=== PATIENT | male | born 1995 | race Caucasian/White ===

== ENCOUNTER 2017-05-13 17:37 | Emergency (ER) | payer SELFPAY ==
[~2017-05-13] VITALS: Ht 165.1 cm; Wt 61.2 kg
--- OUTSIDE RECORDS SUMMARY | 2017-05-13 17:43 | XMS REPORT ---
Author Author NEIL SAAB [facility] eClinicalWorks Address Unknown Phone Unavailable Care Team Providers Care Certified Control Systems Technician Name Role Phone NEIL SAAB CP Unavailable Allergies, Adverse Reactions, Alerts Substance Reaction Event Type N.K.D.A. Info Not Available Non Drug Allergy Problems Problem Type Condition Code Onset Dates Condition Status Assessment Eye irritation H57.8 Active Problem Depressive disorder, not elsewhere classified 311 Active Medications No Known Medications Procedures Procedure Coding System Code Date Office Visit, Est Pt., Level 3 CPT-4 96101 August 26, 2015 Vital Signs Date/Time: August 26, 2015 Temperature 98 F Weight 135 lbs Height 67 in BMI 21.14 Index Blood Pressure Diastolic 76 mmHg Blood Pressure Systolic 122 mmHg Cardiac Monitoring Heart Rate 68 bpm BMIPercentile 38.07 % Wt Percentile 26.1 % Results No Known Results Summary Purpose eClinicalWorks Submission
--- OUTSIDE RECORDS SUMMARY | 2017-05-13 17:43 | XMS REPORT ---
Author Author OSCAR LONG Organization eClinicalWorks Address Unknown Phone Unavailable Care Team Providers Care Advance Seal Delivery System Maintainer Name Role Phone OSCAR LONG CP Unavailable Allergies, Adverse Reactions, Alerts Substance Reaction Event Type N.K.D.A. Info Not Available Non Drug Allergy Problems Problem Type Condition Code Onset Dates Condition Status Assessment Seasonal allergic rhinitis due to pollen J30.1 Active Problem Depressive disorder, not elsewhere classified 311 Active Medications Medication Code System Code Instructions Start Date End Date Status Dosage Cetirizine HCl [facility] [address]-78 10 mg Orally Once a day Jan 05, 2016 1 tablet Fluticasone Propionate [facility] [address]-41 50 MCG/ACT Nasally Once a day Jan 05, 2016 1 spray in each nostril Procedures Procedure Coding System Code Date Office Visit, Est Pt., Level 3 CPT-4 77687 Jan 05, 2016 Vital Signs Date/Time: Jan 05, 2016 Cardiac Monitoring Heart Rate 70 bpm Weight 138.9 lbs Height 67 in Wt Percentile 29.73 % BMI 21.75 Index Blood Pressure Diastolic 70 mmHg Blood Pressure Systolic 118 mmHg BMIPercentile 43.3 % Results No Known Results Summary Purpose eClinicalWorks Submission
--- OUTSIDE RECORDS SUMMARY | 2017-05-13 17:43 | XMS REPORT ---
Author Author ERAN KING [facility] eClinicalWorks Address Unknown Phone Unavailable Care Team Providers Care Assisted Living Care Manager Name Role Phone ERAN KING CP Unavailable Allergies, Adverse Reactions, Alerts Substance Reaction Event Type N.K.D.A. Info Not Available Non Drug Allergy Problems Problem Type Condition ICD-9 Code Onset Dates Condition Status Assessment Sports physical V70.3 Active Assessment Exercise counseling V65.41 Active Problem Depressive disorder, not elsewhere classified 311 Active Assessment Dietary counseling V65.3 Active Medications No Known Medications Procedures Procedure Coding System Code Date AUDIOMETRY-SCREEN CPT-4 79555 Jan 06, 2015 VISUAL ACUITY SCREEN CPT-4 35453 Jan 06, 2015 Preventive Care Est Pt. Age 12-17 CPT-4 08718 Jan 06, 2015 Vital Signs Date/Time: Jan 06, 2015 BMIPercentile 44.13 % Temperature 98.3 F Wt Percentile 31.46 % Weight 135lbs 5oz lbs Height 67 in Hearing pass P / L Blood Pressure Diastolic 80 mmHg Blood Pressure Systolic 120 mmHg Cardiac Monitoring Heart Rate 70 bpm Ht Percentile 21.65 % BMI 21.19 Index Results No Known Results Summary Purpose eClinicalWorks Submission
--- OUTSIDE RECORDS SUMMARY | 2017-05-13 17:43 | XMS REPORT ---
Author Author NEIL SAAB [facility] eClinicalWorks Address Unknown Phone Unavailable Care Team Providers Care Group Cio Name Role Phone NEIL SAAB Unavailable Allergies No Known Allergies Problems Problem Type Condition Code Onset Dates Condition Status Assessment Encounter for immunization Z23 Active Problem Depressive disorder, not elsewhere classified 311 Active Medications No Known Medications Procedures Procedure Coding System Code Date SINGLE IMMUNIZATION ADMIN CPT-4 10367 Apr 01, 2015 MENINGOCOCCAL (MENVEO) CPT-4 41978 Apr 01, 2015 Results No Known Results Immunizations Vaccine Administration Date MENINGOCOCCAL (MENVEO) Apr 01, 2015 Summary Purpose eClinicalWorks Submission
--- OUTSIDE RECORDS SUMMARY | 2017-05-13 17:43 | XMS REPORT ---
Author Author KYLE KUMAR [facility] Address [address] [place] [address] Care Team Providers Care Box Tender Name Role Phone KLYE KUMAR Unavailable PROBLEMS Type Condition ICD9-CM Code GUY30-QP Code Onset Dates Condition Status SNOMED Code Problem Depressive disorder, not elsewhere classified 311 Active [id number] ALLERGIES Substance Reaction Event Type Date Status N.K.D.A. Unknown Non Drug Allergy May, Unknown SOCIAL HISTORY No smoking Hx information available PLAN OF CARE Activity Details Follow Up prn Reason: VITAL SIGNS Height 67 in 2016-05-20 Weight 142.2 lbs 2016-05-20 Temperature 98.5 degrees Fahrenheit 2016-05-20 Heart Rate 72 bpm 2016-05-20 Respiratory Rate 20 2016-05-20 Oximetry 98 % 2016-05-20 BMI 22.27 kg/m2 2016-05-20 Blood pressure systolic 118 mmHg 2016-05-20 Blood pressure diastolic 66 mmHg 2016-05-20 MEDICATIONS Medication Instructions Dosage Frequency Start Date End Date Duration Status Cetirizine HCl 10 mg Orally Once a day 1 tablet 24h Dec, Active Fluticasone Propionate 50 MCG/ACT Nasally Once a day 1 spray in each nostril 24h Dec, Active RESULTS No Results PROCEDURES Procedure Date Ordered Related Diagnosis Body Site MEASURE BLOOD OXYGEN LEVEL May 20, 2016 Office Visit, Est Pt., Level 2 May 20, 2016 IMMUNIZATIONS No Known Immunizations
--- OUTSIDE RECORDS SUMMARY | 2017-05-13 17:44 | XMS REPORT | Continuity of Care Document ---
Author Author [facility] Address Unknown Phone Unavailable Allergies Active Description Code Type Severity Reaction Onset Reported/Identified Relationship to Patient Clinical Status Yes No Known Drug Allergies [id number] Drug Allergy Unknown N/A 05/08/2014 Medications There is no data. Problems Date Dx Coded Attending Type Code Diagnosis Diagnosed By 04/22/2011 DEVON GARZA PHD V70.3 SPORTS PHYSICAL 04/22/2011 NEIL SAAB APRN V70.3 SPORTS PHYSICAL 06/10/2011 DEVON GARZA PHD 305.20 NONDEPENDENT CANNABIS ABUSE UNSPECIFIED USE 06/10/2011 NEIL SAAB APRN 305.20 NONDEPENDENT CANNABIS ABUSE UNSPECIFIED USE 07/11/2011 DEVON GARZA PHD 311 DEPRESSIVE DISORDER NOS 07/11/2011 NEIL SAAB APRN 311 DEPRESSIVE DISORDER NOS 09/05/2011 DEVON GARZA PHD 466.0 BRONCHITIS, ACUTE 09/05/2011 DEVON GARZA PHD 473.9 SINUSITIS (CHRONIC) 09/05/2011 NEIL SAAB APRN 466.0 BRONCHITIS, ACUTE 09/05/2011 NEIL SAAB APRN 473.9 SINUSITIS (CHRONIC) 05/08/2014 FRANCOIS CAT MD Ot 784.2 SWELLING IN HEAD NECK 05/08/2014 FRANCOIS CAT MD Ot 785.6 ENLARGEMENT LYMPH NODES Procedures Code [place] [address] VISUAL ACUITY SCREEN 12/27/2013 Results There is no data. Encounters ACCT No. Visit Date/Time Discharge Status Pt. Type Provider Facility Loc./Unit Complaint [id number] 12/27/2013 13:22:00 12/27/2013 23:59:59 CLS Outpatient NEIL SAAB APRN [id number] 03/05/2012 07:59:00 03/05/2012 23:59:59 CLS Outpatient DEVON GARZA PHD [id number] 04/20/2012 11:16:55 RECURRING [id number] 05/08/2014 22:36:00 05/08/2014 23:43:00 DIS Emergency EMORY HOWE, FRANCOIS Nugent [facility] ER SWOLLEN THROAT-RT SIDE
[2017-05-13] MEDS ORDERED: RX-OSELTAMIVIR 75 MG (TAMIFLU) BOX OF 10 PO STA (19:07)
--- NOTE | 2017-05-13 19:07 | ED Respiratory ---
General Chief Complaint: Cough/Cold/Flu Symptoms Stated Complaint: FLU SYPTOMS,FEVER/COUGH Nursing Triage Note: PT HAS COLD COUGH FLU SX Source: patient, spouse Exam Limitations: no limitations History of Present Illness Time seen by provider: 18:50 Initial Comments 21-year-old male patient presents to the emergency department with complaints of fever, cough, congestion, rhinorrhea, sneezing, sore throat or 2 days. Did have a fever earlier today, but took ibuprofen. Timing/Duration: other (today onset with fever today) Prior Episodes/Possible Cause: no prior episodes Modifying Factors: Worse With Coughing Allergies and Home Medications Allergies Coded Allergies: No Known Drug Allergies (Unverified , 05/08/14) Home Medications No Active Prescriptions or Reported Meds Constitutional: see HPI, chills, No diaphoresis, No dizziness, fever, malaise EENTM: see HPI, ear pain (right), nose congestion, throat pain, No ear discharge, No mouth pain, No throat swelling Respiratory: see HPI, cough, phlegm, No short of breath, No stridor, No wheezing Cardiovascular: no symptoms reported Gastrointestinal: No abdominal pain, No constipation, No diarrhea, loss of appetite, No nausea, No vomiting Genitourinary: no symptoms reported Musculoskeletal: no symptoms reported Skin: no symptoms reported Psychiatric/Neurological: No Symptoms Reported All Other Systems Reviewed Negative Unless Noted: Yes (Negative excepted noted.) Past [id number] Hx Patient Social History Alcohol Use: Denies Use Recreational Drug Use: No Smoking Status: Never a Smoker Recent Foreign Travel: No Contact w/Someone Who Travel: No Recent Infectious Disease Expo: No Recent Hopitalizations: No Ebola Symptoms: Denies Symptoms Listed Seasonal Allergies Seasonal Allergies: No Surgeries History of Surgeries: No Respiratory History of Respiratory Disorde: No Cardiovascular History of Cardiac Disorders: No Neurological History of Neurological Disord: No Reproductive System Hx Reproductive Disorders: No Sexually Transmitted Disease: No Gastrointestinal History of Gastrointestinal Di: No Musculoskeletal History of Musculoskeletal Dis: No Endocrine History of Endocrine Disorders: No Cancer History of Cancer: No Psychosocial History of Psychiatric Problem: No Integumentary History of Skin or Integumenta: No Blood Transfusions History of Blood Disorders: No Reviewed Nursing Assessment Reviewed/Agree w Nursing PMH: Yes Family Medical History Significant Family History: No Pertinent Family Hx Physical Exam Vital Signs Vital Sign - Last 12Hours 05/13/17 18:30 Temp 98.1 Pulse 91 Resp 18 B/P (MAP) 82/64 Capillary Refill : General Appearance: WD/WN, no apparent distress HEENT: PERRL/EOMI, pharyngeal erythema, No tonsillar exudate, other ((+) nasal congestion, rhinorrhea. Rt TM mild erythema without bulging or retractions.) Neck: full range of motion, supple, lymphadenopathy (R) (anterior cervical lymphadenopathy, tender to palpation.), lymphadenopathy (L) (anterior cervical lymphadenopathy, tender to palpation.) Respiratory: lungs clear, normal breath sounds, no respiratory distress, no accessory muscle use Cardiovascular: regular rate, rhythm, no murmur Gastrointestinal: normal bowel sounds, non tender, soft Extremities: normal capillary refill Neurologic/Psychiatric: alert, normal mood/affect, oriented x 3 Skin: normal color, warm/dry Progress/Results/Core Measures Suspected Sepsis SIRS Temperature:98.1 Pulse: Respiratory Rate: Blood Pressure / Mean: Results/Orders Vital Signs/I&O Vital Sign - Last 12Hours 05/13/17 18:30 Temp 98.1 Pulse 91 Resp 18 B/P (MAP) 82/64 Capillary Refill : Departure Impression Impression: Primary Impression: Influenza-like illness Disposition: HOME, SELF-CARE Condition: Improved Departure-Patient Inst. Decision time for Depature: 19:03 Referrals: THIAGO STOUT MD (PCP/Family) Primary Care Physician Add. Discharge Instructions: All discharge instructions reviewed with patient and/or family. Voiced understanding. Medications as instructed. Tylenol Extra Strength over-the- counter as directed for pain or fever. Ibuprofen 800 mg by mouth every 8 hours as needed for pain or fever. Push fluids. Cool humidifier. Saline nasal spray and Afrin nasal spray [id number] as needed for nasal congestion. Follow-up with your family practitioner for recheck if no improvement in symptoms. Return to the emergency department for worsened symptoms or any other concerns. Scripts No Active Prescriptions or Reported Meds Work/School Note: Work Release Form Date Seen in the Emergency Department: May 13, 2017 Return to Work: May 15, 2017 NAT YANCEY May 13, 2017 19:07
== END 2017-05-13 19:16 | disposition home or self-care (01) ==
LOC: EDUNIT# 17:37 → ER 17:40
DX: J11.1 Influenza due to unidentified influenza virus with other respiratory manifestations (principal)
CPT/HCPCS: 99282

== ENCOUNTER 2022-12-11 05:50 | Emergency (ER) | payer OTHER ==
[2022-12-11 06:27] LABS: BASOPHILS % (AUTO) 0 % (0-10); EOSINOPHILS % (AUTO) 0 % (0-10); HEMATOCRIT 48 % (40-54); HEMOGLOBIN 16.5 g/dL (13.3-17.7); LYMPHOCYTES % (AUTO) 9 % (12-44); MEAN CORPUSCULAR HEMOGLOBIN 31 pg (25-34); MEAN CORPUSCULAR HGB CONC 35 g/dL (32-36); MEAN CORPUSCULAR VOLUME 88 fL (80-99); MONOCYTES # (AUTO) 0.7 10^3/uL (0.0-1.0); MONOCYTES % (AUTO) 6 % (0-12); NEUTROPHILS # (AUTO) 9.4 10^3/uL (1.8-7.8); NEUTROPHILS % (AUTO) 85 % (42-75); PLATELET COUNT 192 10^3/uL (130-400); WHITE BLOOD COUNT 11.2 10^3/uL (4.3-11.0)
[2022-12-11] MEDS ORDERED: LACTATED RINGERS 1,000 ML IV ONE (06:30)
[2022-12-11] MEDS ORDERED: ONDANSETRON 4 MG/2 ML (SDV) Z0FRAN IVP ONE (06:30)
[2022-12-11] MEDS ORDERED: HYOSCYAMINE 0.125 MG (LEVSIN) TAB SL ONE (06:30)
[2022-12-11 06:31] LABS: ALBUMIN 4.6 GM/DL (3.2-4.5)
[2022-12-11 06:32] LABS: CHLORIDE 104 MMOL/L (98-107); POTASSIUM 3.3 MMOL/L (3.6-5.0); SODIUM 138 MMOL/L (135-145)
[2022-12-11 06:33] LABS: CALCIUM 9.4 MG/DL (8.5-10.1)
[2022-12-11 06:34] LABS: GLUCOSE 130 MG/DL (70-105); TOTAL PROTEIN 7.6 GM/DL (6.4-8.2)
[2022-12-11 06:35] LABS: CARBON DIOXIDE 23 MMOL/L (21-32)
[2022-12-11 06:36] LABS: BILIRUBIN,TOTAL 1.1 MG/DL (0.1-1.0)
[2022-12-11 06:37] LABS: ALKALINE PHOSPHATASE 64 U/L (40-136)
[2022-12-11 06:38] LABS: BILIRUBIN,URINE NEGATIVE (NEGATIVE); CLARITY,URINE CLEAR; COLOR,URINE YELLOW; GLUCOSE, URINE (UA) NEGATIVE (NEGATIVE); KETONES,URINE 1+ (NEGATIVE); LEUKOCYTE ESTERASE ,URINE NEGATIVE (NEGATIVE); NITRITE,URINE NEGATIVE (NEGATIVE); PROTEIN,URINE TRACE (NEGATIVE)
[2022-12-11 06:38] LABS: CREATININE SERUM 0.96 MG/DL (0.60-1.30); GFR ESTIMATED 112
[2022-12-11 06:39] LABS: BUN/CREATININE RATIO 7
--- NOTE | 2022-12-11 06:39 | ED Abdominal Pain ---
General Chief Complaint: Abdominal/GI Problems Stated Complaint: ABD PAIN Nursing Triage Note: TO ED VIA POV AND AMBULATORY TO ROOM 5 WITH C/O INTERMITTENT LOWER ABD CRAMPING SINCE MONDAY AFTERNOON 12/09/22. PT STATES HE HAS FELT "HOT AND SWEATY" AT TIMES WELL. N/V/D SINCE YESTERDAY AND HAS TRIED OTC PAIN MEDICATIONS AND PEPTO BISMOL WITHOUT RELIEF. Source of Information: Patient Exam Limitations: No Limitations History of Present Illness Date Seen by Provider: Dec 11, 2022 Time Seen by Provider: 06:09 Initial Comments This 27-year-old young man presents to the emergency room with acute illness that includes subjective fever, chills, crampy intermittent lower abdominal pain, nausea, vomiting, and diarrhea. He is still nauseous now. He has been ill since Monday night, approximately 48 hours. He is afebrile at present. He denies any blood in his emesis or stool. No other household members have been ill. Allergies and Home Medications Allergies Coded Allergies: No Known Drug Allergies (Unverified , 05/08/14) Patient Home Medication List Home Medication List Reviewed: Yes Hyoscyamine Sulfate (Levsin-Sl) 0.125 Mg Tab.subl, 1-2 TAB SL Q4H PRN for CRAMPS Prescribed by: MACIEL ROB on 12/11/22 0718 Ondansetron (Ondansetron Odt) 4 Mg Tab.rapdis, 4 MG SL Q4H PRN for NAUSEA/VOMITING Prescribed by: MACIEL ROB on 12/11/22 0718 Review of Systems Review of Systems Constitutional: see HPI, chills, fever EENTM: No Symptoms Reported Respiratory: No Symptoms Reported Cardiovascular: No Symptoms Reported Gastrointestinal: See HPI Genitourinary: No Symptoms Reported; Denies Burning, Denies Frequency, Denies Hematuria Musculoskeletal: no symptoms reported Skin: no symptoms reported Psychiatric/Neurological: No Symptoms Reported Endocrine: No Symptoms Reported Hematologic/Lymphatic: No Symptoms Reported Past Vssqduq-Vnmhew-Pohwri Hx Patient Social History Tobacco Use?: No Substance use?: Yes Substance type: Marijuana Alcohol Use?: Yes Alcohol Frequency: Once in a while Immunizations Up To Date COVID19 Vaccine Clip Coater: N/A Seasonal Allergies Seasonal Allergies: No Past Medical History Surgeries: No Respiratory: No Cardiac: No Neurological: No Reproductive Disorders: No Sexually Transmitted Disease: No Gastrointestinal: No Musculoskeletal: No Endocrine: No Cancer: No Psychosocial: No Integumentary: No Blood Disorders: No Family Medical History No Pertinent Family Hx Physical Exam Vital Signs Vital Signs - First Documented 12/11/22 06:05 Temp 37.1 Pulse 73 Resp 16 B/P (MAP) 139/68 (91) Pulse Ox 98 O2 Delivery Room Air Capillary Refill : Less Than 3 Seconds Height/Weight/BMI Height: 5'5.00" Weight: 135lbs. oz. 61.165613ri; 21.09 BMI Method:Stated General Appearance: WD/WN, no apparent distress HEENT: normal ENT inspection, other (Oropharynx somewhat pasty) Neck: normal inspection Respiratory: lungs clear, normal breath sounds, no respiratory distress Cardiovascular: regular rate, rhythm, no edema, no murmur Gastrointestinal: normal bowel sounds, non tender, soft; No distended Extremities: normal inspection, no pedal edema Neurologic/Psychiatric: ct manager II-XII nml as tested, no motor/sensory deficits, alert, normal mood/affect, oriented x 3 Skin: normal color, warm/dry Progress/Results/Core Measures Results/Orders Lab Results Laboratory Tests Test 12/11/22 06:08 12/11/22 06:30 Range/Units White Blood Count 11.2 H 4.3-11.0 10^3/uL Red Blood Count 5.40 4.30-5.52 10^6/uL Hemoglobin 16.5 13.3-17.7 g/dL Hematocrit 48 40-54 % Mean Corpuscular Volume 88 80-99 fL Mean Corpuscular Hemoglobin 31 25-34 pg Mean Corpuscular Hemoglobin Concent 35 32-36 g/dL Red Cell Distribution Width 12.4 10.0-14.5 % Platelet Count 192 130-400 10^3/uL Mean Platelet Volume 10.0 9.0-12.2 fL Immature Granulocyte % (Auto) 0 % Neutrophils (%) (Auto) 85 H 42-75 % Lymphocytes (%) (Auto) 9 L 12-44 % Monocytes (%) (Auto) 6 0-12 % Eosinophils (%) (Auto) 0 0-10 % Basophils (%) (Auto) 0 0-10 % Neutrophils # (Auto) 9.4 H 1.8-7.8 10^3/uL Lymphocytes # (Auto) 1.0 1.0-4.0 10^3/uL Monocytes # (Auto) 0.7 0.0-1.0 10^3/uL Eosinophils # (Auto) 0.0 0.0-0.3 10^3/uL Basophils # (Auto) 0.0 0.0-0.1 10^3/uL Immature Granulocyte # (Auto) 0.0 0.0-0.1 10^3/uL Sodium Level 138 135-145 MMOL/L Potassium Level 3.3 L 3.6-5.0 MMOL/L Chloride Level 104 98-107 MMOL/L Carbon Dioxide Level 23 21-32 MMOL/L Anion Gap 11 5-14 MMOL/L Blood Urea Nitrogen 7 7-18 MG/DL Creatinine 0.96 0.60-1.30 MG/DL Estimat Glomerular Filtration Rate 112 BUN/Creatinine Ratio 7 Glucose Level 130 H 70-105 MG/DL Calcium Level 9.4 8.5-10.1 MG/DL Corrected Calcium 8.5-10.1 MG/DL Total Bilirubin 1.1 H 0.1-1.0 MG/DL Aspartate Amino Transf (AST/SGOT) 25 5-34 U/L Alanine Aminotransferase (ALT/SGPT) 20 0-55 U/L Alkaline Phosphatase 64 40-136 U/L C-Reactive Protein High Sensitivity 12.90 H 0.00-0.50 MG/DL Total Protein 7.6 6.4-8.2 GM/DL Albumin 4.6 H 3.2-4.5 GM/DL Urine Color YELLOW Urine Clarity CLEAR Urine pH 6.0 5-9 Urine Specific [place] 1.010 L 1.016-1.022 Urine Protein TRACE H NEGATIVE Urine Glucose (UA) NEGATIVE NEGATIVE Urine Ketones 1+ H NEGATIVE Urine Nitrite NEGATIVE NEGATIVE Urine Bilirubin NEGATIVE NEGATIVE Urine Urobilinogen 0.2 < = 1.0 MG/DL Urine Leukocyte Esterase NEGATIVE NEGATIVE Urine RBC (Auto) TRACE-I H NEGATIVE Urine RBC RARE /HPF Urine WBC RARE /HPF Urine Crystals NONE /LPF Urine Bacteria NEGATIVE /HPF Urine Casts NONE /LPF Urine Mucus NEGATIVE /LPF Urine Culture Indicated NO My Orders Orders - MACIEL ALANIZ MD Ondansetron Injection (Zofran Injectio (12/11/22 06:30) Hyoscyamine Sl Tablet (Levsin Sl Tablet) (12/11/22 06:30) Ed Iv/Invasive Line Start (12/11/22 06:18) Lactated Ringers (Lr 1000 Ml Iv Solution (12/11/22 06:30) Cbc With Automated Diff (12/11/22 06:19) Comprehensive Metabolic Panel (12/11/22 06:19) Hs C Reactive Protein (12/11/22 06:19) Ua Culture If Indicated (12/11/22 06:19) Ketorolac Injection (Toradol Injection) (12/11/22 07:15) Medications Given in ED Current Medications Medications Dose Ordered Sig/Anish Route Start Time Stop Time Status Last Admin Dose Admin Hyoscyamine Sulfate 0.25 mg ONCE ONCE SL 12/11/22 06:30 12/11/22 06:31 DC 12/11/22 06:30 0.25 MG Ketorolac Tromethamine 30 mg ONCE ONCE IVP 12/11/22 07:15 12/11/22 07:16 DC 12/11/22 07:13 30 MG Lactated Ringer's 1,000 ml @ 0 mls/hr Q0M ONCE IV 12/11/22 06:30 12/11/22 06:31 DC 12/11/22 06:30 999 MLS/HR Ondansetron HCl 8 mg ONCE ONCE IVP 12/11/22 06:30 12/11/22 06:31 DC 12/11/22 06:30 8 MG Vital Signs/I&O 12/11/22 06:05 Temp 37.1 Pulse 73 Resp 16 B/P (MAP) 139/68 (91) Pulse Ox 98 O2 Delivery Room Air Blood Pressure Mean: 91 Progress Progress Note #1: Time: 06:41 Progress Note Provider was in patient's room at 0609 for interview and exam during nursing triage. Orders were placed by a 0620. He is receiving Zofran 8 mg IV for nausea, Levsin 0.25 mg sublingually for bowel cramping, and a liter of LR for hydration. Labs are being processed. Remainder of his evaluation and treatment will be based on response to treatment and results of his labs. He was found to have no abdominal tenderness. Symptoms seem most consistent with a viral gastroenteritis. Progress Note #2: Time: 06:45 Progress Note Serum labs have been reviewed and interpreted by me. CBC demonstrated a very slight leukocytosis of 11.2. CBC was otherwise unremarkable. CMP demonstrated mild hypokalemia with potassium of 3.3. Patient did receive some potassium in his LR. Liver labs were relatively unremarkable. Glucose was slightly elevated at 130. CRP was elevated at 12.9. Progress Note #3: Time: 07:35 Progress Note Urinalysis was reviewed and interpreted by me. There was 1+ ketones suggesting some mild hypovolemia. Urinalysis was otherwise unremarkable. Patient did experience significant improvement with Zofran, Levsin, and hydration but still had some residual pain. This was treated with a dose of Toradol. He notes significant improvement after Toradol. Discharge instructions and medications have been reviewed with the patient. Questions have been answered. He does not need a work note. See discharge instructions for further discussion. Patient is being discharged in stable and improved condition. Discharge instructions have been printed and given to the nurse. Departure Impression Primary Impression: Nausea vomiting and diarrhea Additional Impression: Abdominal cramping Disposition: 01 HOME, SELF-CARE Condition: Improved Departure-Patient Inst. Decision time for Depature: 07:11 Referrals: NO,LOCAL PHYSICIAN (PCP/Family) Primary Care Physician Patient Instructions: Diarrhea in adolescents and adults, Nausea and Vomiting, Adult ED Add. Discharge Instructions: The exact cause of your symptoms is uncertain, but it is likely related to a viral illness. Start with a noncarbonated clear liquid diet and gradually advance your diet with small quantities of bland food as tolerated. Try to adhere to a clear liquid diet for the rest of today. Appropriate clear liquids would include water, Pedialyte (or generic equivalents), Gatorade, etc. Your potassium was slightly low, so it may be helpful to choose foods and beverages containing potassium such as Pedialyte, potatoes, bananas, etc. Avoid fatty/greasy foods and dairy products until your diarrhea has been resolved for a few days. For nausea and vomiting you may take Zofran (ondansetron) as prescribed. For cramping and diarrhea you may take Levsin (hyoscyamine) as prescribed. For pain or fever use Tylenol (acetaminophen) up to 1000 mg every 6 hours as needed. Avoid use of NSAID medications such as ibuprofen or naproxen. If you have diarrhea that persists more than 1 week or you develop bloody diarrhea, return to the emergency room or contact your primary care provider. You may need stool studies performed at that time. Avoid use of marijuana products, especially while you are sick with gastrointestinal symptoms. Marijuana can cause worsening of nausea, vomiting, abdominal cramping, and diarrhea. Return to the emergency room if you have worsening symptoms despite following these instructions. All discharge instructions reviewed with patient and/or family. Voiced understanding. Scripts Hyoscyamine Sulfate (Levsin-Sl) 0.125 Mg Tab.subl 1-2 TAB SL Q4H PRN for CRAMPS, #10 TAB 0 Refills Prov: MACIEL ALANIZ MD 12/11/22 Ondansetron (Ondansetron Odt) 4 Mg Tab.rapdis 4 MG SL Q4H PRN for NAUSEA/VOMITING, #10 TAB For abdominal cramping and diarrhea Prov: MACIEL ALANIZ MD 12/11/22 Copy Copies To 1: THIAGO STOUT MD, JOSHUA T MD Dec 11, 2022 06:39
[2022-12-11 06:41] LABS: ALANINE AMINOTRANSFERASE 20 U/L (0-55)
[2022-12-11 06:50] LABS: BACTERIA,URINE NEGATIVE /HPF; RBC,URINE RARE /HPF; WBC,URINE RARE /HPF
[2022-12-11] MEDS ORDERED: KETOROLAC 30 MG/ML VIAL IVP ONE (07:15)
[2022-12-11] MEDS ORDERED: HYOS0.1283 SL (07:18)
[2022-12-11] MEDS ORDERED: ONDA4TAB11 SL (07:18)
[2022-12-11 07:41] VITALS: BP 132/78
== END 2022-12-11 07:42 | disposition home or self-care (01) ==
LOC: EDUNIT# 05:50 → ER 05:55
DX: R11.2 Nausea with vomiting, unspecified (principal); R19.7 Diarrhea, unspecified; R10.30 Lower abdominal pain, unspecified; E87.6 Hypokalemia; R79.82 Elevated C-reactive protein (CRP); R82.4 Acetonuria; Z28.310 Unvaccinated for COVID-19
CPT/HCPCS: 36415; 80053; 81000; 85025; 86141